=== PATIENT | female | born 1990 | race Caucasian/White ===

== ENCOUNTER 2017-01-15 23:08 | Emergency (ER) | payer OTHER ==
[2017-01-16 00:39] VITALS: BP 118/82
== END 2017-01-16 00:39 | disposition home or self-care (01) ==
LOC: ED 23:08
DX: H10.9 Unspecified conjunctivitis (principal)

== ENCOUNTER 2017-03-07 21:49 | Emergency (ER) | payer OTHER ==
[2017-03-07 22:43] VITALS: BP 130/72
== END 2017-03-08 02:19 | disposition home or self-care (01) ==
LOC: ED 21:49
DX: L04.1 Acute lymphadenitis of trunk (principal)

== ENCOUNTER 2017-08-07 13:28 | Emergency (ER) | payer MEDICAID ==
[~2017-08-07] VITALS: Ht 172.7 cm; Wt 68.3 kg
[2017-08-07 15:16] LABS: BASOPHIL % 0.3 % (0-2); PLATELET COUNT 208 x10^3mcL (130-400); RED CELL DISTRIBUTION WIDTH 13.6 % (11.5-14.5)
[2017-08-07 15:22] LABS: CALCIUM 9.3 mg/dL (8.5-10.1); CARBON DIOXIDE 31.4 mmol/L (21-32); CHLORIDE SERUM 104 mmol/L (98-107); CREATININE SERUM 0.9 mg/dL (0.6-1.0); GFR1 > 60 mL/min; GLUCOSE SERUM 92 mg/dL (74-106); SODIUM SERUM 140 mmol/L (136-145)
[2017-08-07 15:26] LABS: ALBUMIN 4.2 g/dL (3.4-5.0); ALKALINE PHOSPHATASE 41 U/L (46-116); ALT/SGPT 14 U/L (14-59); AST/SGOT 14 U/L (15-37); BILIRUBIN TOTAL 0.7 mg/dL (0.20-1.00); TOTAL PROTEIN, SERUM 8.6 g/dL (6.4-8.2)
[2017-08-07 16:10] VITALS: BP 110/65
== END 2017-08-07 16:10 | disposition home or self-care (01) ==
LOC: ED 13:28
PROVIDERS: Emergency Medicine
DX: H81.10 Benign paroxysmal vertigo, unspecified ear (principal)
CPT/HCPCS: J2405; J7030; J8597

== ENCOUNTER 2017-12-24 12:01 | Emergency (ER) | payer MEDICAID ==
[~2017-12-24] VITALS: Ht 172.7 cm; Wt 64.5 kg
[2017-12-24 12:23] VITALS: Ht 172.7 cm; Wt 64.5 kg
[2017-12-24 14:00] VITALS: BP 109/64
[2017-12-24 14:02] LABS: PLATELET COUNT 183 x10^3mcL (130-400); RED CELL DISTRIBUTION WIDTH 13.3 % (11.5-14.5)
[2017-12-24 14:04] LABS: BASOPHIL % 0 % (0-2)
[2017-12-24 14:33] LABS: CARBON DIOXIDE 24.9 mmol/L (21-32); CHLORIDE SERUM 102 mmol/L (98-107); CREATININE SERUM 0.8 mg/dL (0.6-1.0); GFR1 > 60 mL/min; GLUCOSE SERUM 81 mg/dL (74-106); POTASSIUM SERUM 3.6 mmol/L (3.5-5.1); SODIUM SERUM 138 mmol/L (136-145)
[2017-12-24 14:39] LABS: ALBUMIN 4.3 g/dL (3.4-5.0); ALKALINE PHOSPHATASE 46 U/L (46-116); ALT/SGPT 15 U/L (14-59); AST/SGOT 25 U/L (15-37); BILIRUBIN TOTAL 1.57 mg/dL (0.20-1.00); LIPASE 124 IU/L (73-393); TOTAL PROTEIN, SERUM 8.2 g/dL (6.4-8.2)
== END 2017-12-24 15:06 | disposition home or self-care (01) ==
LOC: ED 12:01
PROVIDERS: Emergency Medicine
DX: R10.11 Right upper quadrant pain (principal); R19.7 Diarrhea, unspecified
CPT/HCPCS: 36415; J1885

== ENCOUNTER 2018-03-17 06:52 | Emergency (ER) | payer MEDICAID ==
[~2018-03-17] VITALS: Ht 172.7 cm; Wt 64.4 kg
[2018-03-17 07:12] VITALS: Ht 172.7 cm; Wt 64.4 kg
[2018-03-17 08:28] LABS: PLATELET COUNT 194 x10^3mcL (130-400); RED CELL DISTRIBUTION WIDTH 14.2 % (11.5-14.5)
[2018-03-17 08:29] LABS: BASOPHIL % 2.2 % (0-2)
[2018-03-17 08:29] LABS: UA SPECIFIC GRAVITY >=1.030 (1.005-1.035); microscopic required? YES; urine erythrocyte 3+ (NEGATIVE)
[2018-03-17 09:00] LABS: CALCIUM 9.4 mg/dL (8.5-10.1); CARBON DIOXIDE 26.6 mmol/L (21-32); CHLORIDE SERUM 104 mmol/L (98-107); CREATININE SERUM 0.9 mg/dL (0.6-1.0); GFR1 > 60 mL/min; GLUCOSE SERUM 92 mg/dL (74-106); POTASSIUM SERUM 4.2 mmol/L (3.5-5.1); SODIUM SERUM 138 mmol/L (136-145)
[2018-03-17 09:05] LABS: ALBUMIN 4.4 g/dL (3.4-5.0); ALKALINE PHOSPHATASE 53 U/L (46-116); AST/SGOT 19 U/L (15-37); BILIRUBIN TOTAL 0.64 mg/dL (0.20-1.00)
[2018-03-17 09:06] LABS: TOTAL PROTEIN, SERUM 8.3 g/dL (6.4-8.2)
[2018-03-17 09:26] LABS: ALT/SGPT 11 U/L (14-59)
[2018-03-17 09:38] VITALS: BP 110/65
== END 2018-03-17 09:38 | disposition home or self-care (01) ==
LOC: ED 06:52
PROVIDERS: Emergency Medicine
DX: R10.31 Right lower quadrant pain (principal); N93.9 Abnormal uterine and vaginal bleeding, unspecified; R42 Dizziness and giddiness; R11.0 Nausea
CPT/HCPCS: 36415; J1885

== ENCOUNTER 2018-08-27 19:45 | Emergency (ER) | payer MEDICAID ==
[~2018-08-27] VITALS: Ht 172.7 cm; Wt 66.2 kg
[2018-08-27 20:21] VITALS: Ht 172.7 cm; Wt 66.2 kg
[2018-08-27 23:15] VITALS: BP 120/65
== END 2018-08-27 23:15 | disposition home or self-care (01) ==
LOC: ED 19:45
DX: L72.3 Sebaceous cyst (principal)
CPT/HCPCS: J2001

== ENCOUNTER 2020-01-25 09:24 | Emergency (ER) | payer MEDICAID, SELFPAY, OTHER ==
[~2020-01-25] VITALS: Ht 172.7 cm; Wt 68.0 kg
[2020-01-25 09:42] VITALS: BP 125/94; Ht 172.7 cm; Wt 68.0 kg
== END 2020-01-25 11:47 | disposition home or self-care (01) ==
LOC: ED 09:24
DX: R50.9 Fever, unspecified (principal); J02.9 Acute pharyngitis, unspecified; M79.10 Myalgia, unspecified site; Z20.828 Contact with and (suspected) exposure to other viral communicable diseases
CPT/HCPCS: C9803-CS; U0003-CS